=== PATIENT | female | born 1985 | race Caucasian/White ===

== ENCOUNTER 2019-10-12 02:33 | Emergency (ER) | payer OTHER ==
[~2019-10-12] VITALS: Ht 175.3 cm; Wt 83.9 kg
[2019-10-12] MEDS ORDERED: SYMBICORT160 MCG/4. INH (02:41)
[2019-10-12] MEDS ORDERED: ZOLOFT100 MG PO (02:41)
[2019-10-12] MEDS ORDERED: CIPRO500 M1 PO (02:42)
[2019-10-12 03:48] LABS: URINE BILIRUBIN NEGATIVE (Negative); URINE BLOOD 1+ (Negative); URINE CLARITY CLEAR; URINE COLOR YELLOW; URINE GLUCOSE-RANDOM* NEGATIVE (Negative); URINE KETONES TRACE (Negative); URINE PROTEIN (DIPSTICK) 2+ (Negative); URINE SPECIFIC GRAVITY 1.025 (1.005-1.035); URINE UROBILINOGEN 0.2 E.U./dl (0.2-1.0)
[2019-10-12 04:00] LABS: URINE LEUKOCYTES-REFLEX 1+ (Negative); URINE NITRITE-REFLEX POSITIVE (Negative)
[2019-10-12] MEDS ORDERED: ZOFRAN ODT4 MG PO (04:04)
[2019-10-12 04:15] LABS: FINE GRANULAR CASTS 0-3 Few /LPF (None Seen); HYALINE CASTS 0-3 Few /LPF (None Seen); MUCUS 0-3 Light strn/LPF (None Seen); SQUAMOUS 4-10 Moderate /LPF (0-3); URINE WBC-REFLEX >25 Many /HPF (0-5)
[2019-10-12 04:16] LABS: CRYSTALS None Seen /LPF (None Seen)
[2019-10-12 04:18] VITALS: BP 106/68
== END 2019-10-12 04:20 | disposition home or self-care (01) ==
LOC: ER 02:33
PROVIDERS: Emergency Medicine
DX: N39.0 Urinary tract infection, site not specified (principal); R11.2 Nausea with vomiting, unspecified; J45.909 Unspecified asthma, uncomplicated; Z79.899 Other long term (current) drug therapy; Z79.2 Long term (current) use of antibiotics; Z91.048 Other nonmedicinal substance allergy status

== ENCOUNTER 2019-12-20 18:13 | Emergency (ER) | payer OTHER ==
[~2019-12-20] VITALS: Ht 175.3 cm; Wt 87.5 kg
[~2019-12-20 18:13] MED LIST: CIPRO500 M1 PO; SYMBICORT160 MCG/4. INH; ZOFRAN ODT4 MG PO; ZOLOFT100 MG PO
[2019-12-20 21:25] VITALS: BP 110/66
== END 2019-12-20 21:26 | disposition short-term general hospital (02) ==
LOC: ER 18:13
DX: S01.122A Laceration with foreign body of left eyelid and periocular area, initial encounter (principal); S05.32XA Ocular laceration without prolapse or loss of intraocular tissue, left eye, initial encounter; J45.909 Unspecified asthma, uncomplicated; Z79.899 Other long term (current) drug therapy; Z91.09 Other allergy status, other than to drugs and biological substances; V49.59XA Passenger injured in collision with other motor vehicles in traffic accident, initial encounter; Y93.89 Activity, other specified; Y92.89 Other specified places as the place of occurrence of the external cause; Y99.8 Other external cause status